=== PATIENT | male | born 1945 | race Caucasian/White ===

== ENCOUNTER 2023-03-22 19:06 | Emergency (ER) | payer MEDICARE, OTHER, SELFPAY ==
[2023-03-22 19:38] VITALS: BP 110/60
--- NOTE | 2023-03-23 21:01 | ED.MUSCINJ ---
HPI-Injury
General
Chief Complaint: Fall
Source: patient
Exam Limitations: none
Time Seen by Provider: 03/22/23 19:40
Nursing documentation reviewed up to this point in time: agreed with
Travel History
Have you had any contact with someone who has COVID-19?: No
Do you have any symptoms of coronavirus? Fever > 100 degrees, chills, cough, shortness of breath, sore throat, loss of taste or smell, muscle aches, or headache?: No
History of Present Illness-Injury
Initial Injury comments:
77 yo male states 3 days ago, standing at the bathroom sink with his walker by him, stumbled backwards and fell striking back of head. No LOC. Evaluated here and workup including head CT was neg.
Yesterday noted swelling and discomfort left elbow and today left shoulder pain.
Past History
Past History
ED Past Medical History: GERD, Hyperthyroidism, Psychiatric (depression) and Other (Parkinson's)
Social History
Tobacco: Non-smoker
Alcohol: None
Drug: None
Personal:
Living: detention
Employment: Retired
Review of Systems
Review of Systems
Allergies reviewed?: Yes
All Other Systems: ROS reviewed and negative except as documented in HPI and ROS
Constitutional: Denies fever
Respiratory: Denies trouble breathing
Cardiac: Denies chest pain
ABD/GI: Denies abdominal pain
Musculoskeletal: Reports other (pain left shoulder with limited ROM, swelling and discomfort left elbow); Denies neck pain or back pain
Skin: Reports no symptoms
Neurological: Reports no symptoms
Phy Exam
Physical Exam
Physical Exam:
GENERAL: No acute distress. A&Ox3.
CONSTITUTIONAL: Afebrile.
RESPIRATORY: Regular respirations, nonlabored, lungs clear.
CARDIOVASCULAR: Regular rate and rhythm, no murmurs, no rubs.
GI: Soft, nontender, normal BS
MUSCULOSKELETAL: Limited range of motion of the left upper extremity due to shoulder pain. Mild tenderness over posterior left shoulder at site of small contusion and abrasion. Of full range of motion of the elbow and wrist. Swelling over
olecranon process. Distal neurovascular intact moves with ease. Well perfused.
SKIN: Warm, dry, pink
PSYCH: Normal mood and affect. Well kept, interactive and appropriate
NEUROLOGIC: Awake, alert and oriented. No focal neurological deficits
Injury Course
Orders/Labs/Results
Orders:
Orders
03/22/23 19:20
Shoulder, Left, Trauma CR [CR Shoulder, Trauma - Left] Urgent
Comment:
Reason For Exam: injury and pain
03/22/23 19:21
Elbow, 3 view, Left [CR Elbow - Left Min 3 Views ] Urgent
Comment:
Reason For Exam: injury and pain
MDM/Problems Addressed
Differential Diagnosis Includes:
fracture, sprain, rotator cuff injury, olecranon hematoma, elbow fx
MDM/Problems Addressed:
77 yo male states 3 days ago, standing at the bathroom sink with his walker by him, stumbled backwards and fell striking back of head. No LOC. Evaluated here and workup including head CT was neg.
Yesterday noted swelling and discomfort left elbow and today left shoulder pain.
Elbow x-ray negative for any bony abnormality, swelling over olecranon is consistent with what appears to be a contusion with hematoma
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
Referred back to his family doctor as he may need physical therapy at some point in the future.
*Critical Care Note
Total Time (30-74mins, 75-104mins- exclusive of procedures): Not Applicable
ED Attending Note
-
Portions of this chart may have been created with voice recognition software.� Occasional wrong word or��sound alike� substitutions may have occurred due to the inherent limitations of voice recognition software.
Discharge Plan
Departure
Patient Disposition: Home (Routine Discharge)
Date of Disposition: 03/22/23
Time of Disposition: 21:20
Patient with high blood pressure during this ER visit?: No
Condition: Good
Discharge Problem:
Contusion of left elbow, Traumatic hematoma of left elbow, Soft tissue injury of left shoulder
Instructions: Preventing falls in adults, Shoulder Pain ED, Hematoma
Prescriptions:
No Action
sulfamethoxazole-trimethoprim [Bactrim DS] 800-160 mg tablet
1 tab PO BID Qty: 10 0RF
Referrals:
Shantanu Jacobson, [Family Provider] - As needed
Activity Restrictions/Additional Instructions:
As we discussed,you may need physical therapy for your shoulder. Talk to your primary doctor about it.
Tylenol as needed for pain
The swelling on your elbow is a contusion with blood (hematoma) it should absorb in time.
Interventions
Interventions:
*Risk Screen - Suicide Last Done: 03/22/23 22:14
*General Assessment Last Done: 03/22/23 19:10
*Neglect/Abuse Screening Last Done: 03/22/23 19:10
ED- Fall Risk Assessment Last Done: 03/22/23 19:10
*ED COVID-19 Vaccine History Last Done: 03/22/23 19:10
*Nursing Disposition Last Done: 03/22/23 22:14
ED-Musculoskeletal Assessment Last Done: 03/22/23 19:45
ED- Neurological Assessment Last Done: 03/22/23 19:45
ED-Skin Assessment Last Done: 03/22/23 19:45
Discharge Date and Time
Discharge Date/Time: 03/22/23 22:16
== END 2023-03-22 22:16 | disposition home or self-care (01) ==
LOC: EMR 19:06
PROVIDERS: EMERGENCY PHYSICIAN Emergency Medicine; FAMILY PHYSICIAN Family Medicine
DX: S50.02XA Contusion of left elbow, initial encounter (principal); S40.012A Contusion of left shoulder, initial encounter; S09.90XA Unspecified injury of head, initial encounter; S40.212A Abrasion of left shoulder, initial encounter; W01.0XXA Fall on same level from slipping, tripping and stumbling without subsequent striking against object, initial encounter; Y92.121 Bathroom in nursing home as the place of occurrence of the external cause; I10 Essential (primary) hypertension; K21.9 Gastro-esophageal reflux disease without esophagitis; G20.A1 Parkinson's disease without dyskinesia, without mention of fluctuations; E05.90 Thyrotoxicosis, unspecified without thyrotoxic crisis or storm; F32.A Depression, unspecified; M19.012 Primary osteoarthritis, left shoulder; E78.5 Hyperlipidemia, unspecified; F43.10 Post-traumatic stress disorder, unspecified
CPT/HCPCS: 99283; 73030; 73080